=== PATIENT | male | born 1950 | race Caucasian/White ===

== ENCOUNTER 2025-03-14 16:00 | Inpatient (IN) | payer OTHER ==
[~2025-03-14] VITALS: Ht 175.3 cm; Wt 77.5 kg
[2025-03-14] MEDS ORDERED: ACETAMINOPHEN 325 MG TABLET PO PRN (16:30)
[2025-03-14] MEDS ORDERED: ONDANSETRON HCL 4 MG/2 ML VIAL IVP PRN (16:30)
[2025-03-14] MEDS ORDERED: MAGNESIUM HYDROXIDE SUSPENSION 30 ML UDCUP PO PRN (16:30)
[2025-03-14 16:47] LABS: PLATELET COUNT (AUTO) 213 K/uL (150-450); RED BLOOD CELL COUNT(AUTO) 3.49 MIL/uL (4.50-5.90); RED CELL DISTRIBUTION WIDTH 13.2 % (11.5-14.5); WHITE BLOOD COUNT (AUTO) 6.3 K/uL (4.5-11.0)
[2025-03-14 16:55] LABS: CALCIUM, TOTAL 8.8 mg/dL (8.8-10.5); CREATININE 1.18 mg/dL (0.60-1.30); GLOMERULAR FILTR. RATE CALC > 60 mL/min (>60); GLUCOSE,RANDOM 99 mg/dL (70-110); SODIUM SERUM 138 mmol/L (136-145); UREA NITROGEN, BLOOD 22 mg/dL (7-18)
[2025-03-14 17:01] LABS: CREATINE KINASE, TOTAL ONLY 135 U/L (39-308)
[2025-03-14 17:03] LABS: TROPONIN I-HIGH SENSITIVITY 18 ng/L (<76)
[2025-03-14] MEDS: OxyCODONE HCL/ACETAMINOPHEN 5-325 MG TABLET PO PRN (17:13)
[2025-03-14] MEDS: LOSARTAN POTASSIUM 25 MG TABLET PO SCH (17:28)
[2025-03-14] MEDS: VANCOMYCIN 1.5 GM/WATER(PEG) 300 ML IV ONE (17:29)
[2025-03-14 18:10] VITALS: BP 153/78; PULSE 81; RESP 18; TEMP 98.4; O2SAT 97
[2025-03-14 19:40] VITALS: BP 148/91; PULSE 70; RESP 18; TEMP 97.9; O2SAT 96
[2025-03-14 21:16] VITALS: BP 145/85; PULSE 72; RESP 18; TEMP 97.9; O2SAT 96
[2025-03-14] MEDS: DOCUSATE SODIUM 100 MG CAPSULE PO SCH (21:16)
[2025-03-15] MEDS: HEPARIN SODIUM,PORCINE 5,000 UNITS/ML VIAL SQ SCH
[2025-03-15] MEDS: ZOLPIDEM TARTRATE 5 MG TABLET PO PRN (01:09)
[2025-03-15 04:17] VITALS: BP 152/74; PULSE 78; RESP 18; TEMP 98.6; O2SAT 98
[2025-03-15 07:00] LABS: CALCIUM, TOTAL 8.9 mg/dL (8.8-10.5); CREATININE 1.24 mg/dL (0.60-1.30); GLOMERULAR FILTR. RATE CALC 57.0 mL/min (>60); GLUCOSE,RANDOM 92.0 mg/dL (70-110); SODIUM SERUM 137.0 mmol/L (136-145); UREA NITROGEN, BLOOD 21.0 mg/dL (7-18)
[2025-03-15 08:51] VITALS: BP 161/81; PULSE 83; RESP 20; TEMP 98.4; O2SAT 99
[2025-03-15] MEDS: VANCOMYCIN 750 MG/WATER(PEG) 150 ML IV SCH (09:01)
[2025-03-15] MEDS: FAMOTIDINE 20 MG TABLET PO SCH (09:02)
[2025-03-15] MEDS: BuPROPion HCL XL 150 MG ER TABLET PO SCH ×2 (14:22→21:14)
[2025-03-15 21:14] VITALS: BP 141/73; PULSE 73; RESP 18; TEMP 98.4; O2SAT 97
[2025-03-16 02:21] VITALS: BP 149/89; PULSE 78; RESP 18; TEMP 98.1; O2SAT 96
[2025-03-16 04:48] VITALS: BP 143/86; PULSE 84; RESP 18; TEMP 98.6; O2SAT 97
[2025-03-16 07:45] VITALS: BP 132/90; PULSE 90; RESP 18; TEMP 98.2; O2SAT 100
[2025-03-16] MEDS ORDERED: SODIUM CHLORIDE 0.9% 250 ML IV ONE (08:50)
[2025-03-16 10:05] LABS: CALCIUM, TOTAL 8.9 mg/dL (8.8-10.5); CREATININE 1.17 mg/dL (0.60-1.30); GLOMERULAR FILTR. RATE CALC > 60 mL/min (>60); GLUCOSE,RANDOM 107 mg/dL (70-110); SODIUM SERUM 136 mmol/L (136-145); UREA NITROGEN, BLOOD 21 mg/dL (7-18)
[2025-03-16] MEDS ORDERED: BUPR450T5 PO (10:30)
[2025-03-16] MEDS ORDERED: BUPR-50 PO ×2 (10:31)
[2025-03-16] MEDS ORDERED: LOSA-381 PO (10:32)
[2025-03-16] MEDS ORDERED: FAMO20 PO (10:32)
[2025-03-16] MEDS ORDERED: DOCU-385 PO (10:32)
[2025-03-16] MEDS ORDERED: SULF-261 PO (10:33)
[2025-03-16] MEDS ORDERED: ACET-2247 PO (10:34)
[2025-03-16] MEDS ORDERED: ZOLP-280 PO (10:35)
[2025-03-16] MEDS ORDERED: MAGN-169 PO (10:35)
[2025-03-16] MEDS ORDERED: SULFAMETHOX/TRIMETH DS 800-160 MG/TABLET PO SCH (21:00)
== END 2025-03-16 17:50 | DRG 603 ==
LOC: EMS 16:00 → EDH 16:30 → 6N 17:55
PROVIDERS: ADMIT Internal Medicine; ATTEND Internal Medicine
DX: L03.115 Cellulitis of right lower limb (principal); K40.90 Unilateral inguinal hernia, without obstruction or gangrene, not specified as recurrent; L03.116 Cellulitis of left lower limb; I10 Essential (primary) hypertension; E78.00 Pure hypercholesterolemia, unspecified; F41.9 Anxiety disorder, unspecified; F32.A Depression, unspecified; F99 Mental disorder, not otherwise specified; Z88.0 Allergy status to penicillin; Z88.1 Allergy status to other antibiotic agents; Z79.899 Other long term (current) drug therapy; Z88.6 Allergy status to analgesic agent; Z90.49 Acquired absence of other specified parts of digestive tract
CPT/HCPCS: 71045; 80048; 80202; 82550; 83880; 84484; 85025; 85610; 85730; 93005; 93306; 93970; 99285; J1644; J7050; 36415-L1; 36415-TC